=== PATIENT | female | born 1965 | race Caucasian/White ===

== ENCOUNTER 2018-02-09 11:04 | Emergency (ER) | payer MEDICAID | END 2018-02-09 12:50 | disposition home or self-care (01) | LOC: D.ER 11:04 | DX: S80.261A Insect bite (nonvenomous), right knee, initial encounter (principal); W57.XXXA Bitten or stung by nonvenomous insect and other nonvenomous arthropods, initial encounter; Y93.89 Activity, other specified; Y92.019 Unspecified place in single-family (private) house as the place of occurrence of the external cause; B86 Scabies; F41.9 Anxiety disorder, unspecified; F17.200 Nicotine dependence, unspecified, uncomplicated ==

== ENCOUNTER 2019-07-10 05:23 | Emergency (ER) | payer MEDICAID ==
[~2019-07-10] VITALS: Ht 157.5 cm; Wt 47.7 kg
[2019-07-10 05:26] VITALS: Ht 157.5 cm; Wt 47.7 kg
[2019-07-10] MEDS ORDERED: XANAX0.25 MG PO (05:28)
[2019-07-10] MEDS ORDERED: NEURONTIN 300300 MG PO (05:29)
[2019-07-10] MEDS ORDERED: CYMBALTA30 MG PO (05:29)
[2019-07-10] MEDS ORDERED: BACLOFEN10 MG PO (05:29)
[2019-07-10 06:13] LABS: BASOPHILS 0.1 % (0-2); HEMATOCRIT 31.8 % (36.0-48.0); IMMATURE GRANULOCYTES 0.3 % (0-5); LYMPHOCYTES 15.9 % (15-50); MCH 26.5 pg (26.0-34.0); MCHC 31.4 g/dL (31.0-37.0); MCV 84.4 fL (80.0-100.0); MEAN PLATELET VOLUME 8.5 fL (7.4-10.4); MONOCYTES 11.6 % (2-11); NEUTROPHILS 71.1 % (40-80); PLATELET COUNT 371 10x3/uL (130-400); RBC 3.77 10x6/uL (4.00-5.40); RDW 15.5 % (11.5-14.5); WBC 11.8 10x3/uL (4.8-10.8)
[2019-07-10 06:33] LABS: ALBUMIN 2.8 g/dL (3.4-5.0); ALKALINE PHOSPHATASE 87 U/L (46-116); ALT (SGPT) 15 U/L (10-68); CALC OSMOLALITY 279 mosm/kg (275-300); CALCIUM 8.3 mg/dL (8.5-10.1); CARBON DIOXIDE 28.9 mmol/L (21.0-32.0); CHLORIDE - SERUM 103 mmol/L (98-107); CREATININE - SERUM 0.6 mg/dL (0.6-1.3); GLUCOSE 98 mg/dL (74-106); POTASSIUM - SERUM 3.8 mmol/L (3.5-5.1); PROTEIN - SERUM 6.5 g/dL (6.4-8.2); SODIUM 138 mmol/L (136-145); UREA NITROGEN 24 mg/dL (7-18); eGFR NON AFRICAN AMERICAN > 90 mL/min (90-120)
[2019-07-10] MEDS ORDERED: OMNICEF300 MG PO (06:42)
[2019-07-10] MEDS ORDERED: ULTRAM50 MG PO (06:42)
[2019-07-10 07:03] VITALS: BP 105/57
[2019-07-14 16:08] LABS: AEROBE ID Final report (())
== END 2019-07-10 07:02 | disposition home or self-care (01) ==
LOC: D.ER 05:23
PROVIDERS: Family Medicine
DX: L03.116 Cellulitis of left lower limb (principal); T63.331A Toxic effect of venom of brown recluse spider, accidental (unintentional), initial encounter; F17.210 Nicotine dependence, cigarettes, uncomplicated